=== PATIENT | male | born 1965 | race American Indian/Alaskan Native ===

== ENCOUNTER 2016-07-13 05:57 | Inpatient (IN) | payer OTHER ==
[2016-07-13] MEDS ORDERED: NACL 0.9% 1000 ML 1,000 ML IV ONE ×2 (06:24→07:05)
[2016-07-13 06:57] LABS: Basophils % (Auto) 0.6 % (0.0-1.8); Hematocrit 39.7 % (35.5-45.6); Mean Corpuscular HGB Conc 33 % (32-34); Mean Corpuscular Hemoglobin 33 pg (28-32); Mean Corpuscular Volume 101 fl (84-94); Red Blood Count 3.93 M/mm3 (3.65-5.03); Red Cell Distribution Width 17.1 % (13.2-15.2); White Blood Count 12.7 K/mm3 (4.5-11.0)
[2016-07-13 07:13] LABS: BUN/Creatinine Ratio 7.6; Calcium 8.7 mg/dL (8.4-10.2); Platelet Count 132 K/mm3 (140-440); Potassium 4.3 mmol/L (3.6-5.0)
--- NOTE | 2016-07-13 07:26 | Admit Criteria Form ---
Admission Criteria Documentation: HEMODYNAMIC INSTABILITY Clinical Indications for Inpatient Care (Place 'X' for any and all applicable criteria): Ongoing inpatient care may be indicated for hemodynamic instability as indicated by ANY ONE of the following (1)(2)(3)(4)(10): [X ]I) Marked hemodynamic change from baseline (eg, SBP 20 mm Hg below patient's usual pressure) [X ]II) New SBP less than 90 mm Hg or mean arterial pressure less than 70 mm Hg [B](15) [ ]IIII) Symptomatic heart rate greater than 100 or less than 60 beats per minute unresponsive to treatment (eg, analgesia, fluids) [ ]IV) Inadequate perfusion as indicated by ANY ONE of the following: [ ]a) Lactic acidosis, with lactic acid greater than 18 mg/dL (2 mmol/ L) or base excess less than -5 mEq/L [ ]b) New abnormal capillary refill (longer than 3 seconds) [ ]c) New altered mental status [ ]d) Reduced urine output [ ]V) Orthostatic vital sign changes [B] that are symptomatic and unresponsive to treatment (eg, fluids) [ ]) IV inotropic or vasopressor medication required(26) Extended stay beyond goal length of stay for primary condition may be needed until ALL of the following are present(1)(2)(3): [ ]a) Heart rate > 60 and < 100 beats per minute or patient is clinically stable at current rate (eg, baseline) [ ]b) SBP >100 mm Hg and <160 mm Hg or patient is clinically stable at current pressure (eg, baseline) [ ]c) DBP greater than 50 mm Hg and less than 100 mm Hg or patient is clinically stable at current pressure (eg, baseline) [ ]d) Urine output greater than 0.5 mL/kg per hour [ ]e) Room air oxygen saturation 90% or greater or at baseline [ ]f) Orthostatic vital sign changes absent, asymptomatic, at baseline, or manageable at lower level of care [ ]g) Medical comorbidities manageable at lower level of care The original [employer] [facility] content created by [employer] has been revised. The portions of the content which have been revised are identified through the use of italic text or in bold, and [facility] [employer] has neither reviewed nor approved the modified material. All other unmodified content is copyright [facility]. Please see references footnoted in the original [facility] edition 2016 Admission Criteria Met: Yes
[2016-07-13 07:41] LABS: INR 1.08 (0.87-1.13); Partial Thromboplastin Time 35.5 Sec. (24.2-36.6)
[2016-07-13 07:49] LABS: Alanine Aminotransferase 27 units/L (7-56); Albumin 3.8 g/dL (3.9-5); Albumin/Globulin Ratio 1.3 %; Alkaline Phosphatase 31 units/L (35-129); Bilirubin,Total 0.3 mg/dL (0.1-1.2); Magnesium 1.1 mg/dL (1.7-2.3); Total Protein 6.8 g/dL (6.3-8.2)
--- NOTE | 2016-07-13 07:53 | XRay Report ---
AP CHEST: HISTORY: Syncope AP view of the chest demonstrates a normal mediastinal and cardiac contour with clear lungs and normal bony and soft tissue structures. IMPRESSION: Unremarkable AP chest.
[2016-07-13 07:58] LABS: Bilirubin,Direct < 0.2 mg/dL (0-0.2); Bilirubin,Indirect 0.1 mg/dL
[2016-07-13 08:00] LABS: Cholesterol 131 mg/dL (50-199); HDL Cholesterol 49 mg/dL (40-59); LDL Cholesterol,Direct 53 mg/dL (50-130); Triglycerides 146 mg/dL (2-149)
[2016-07-13 08:02] LABS: Creatine Kinase MB 1.4 ng/mL (0.0-4.0)
[2016-07-13 08:04] LABS: Bacteria,Urine 1+ /HPF (Negative); Bilirubin,Urine NEG (Negative); Blood,Urine NEG (Negative); Ketones,Urine TR mg/dL (Negative); Leukocyte Esterase,Urine NEG (Negative); Mucus,Urine FEW /HPF; Nitrite,Urine NEG (Negative); Urobilinogen,Urine < 2.0 mg/dL (<2.0)
[2016-07-13] MEDS ORDERED: ROCEPHIN/NS 1 GM/50 ML 50 ML IV ONE (08:12)
[2016-07-13] MEDS ORDERED: MILK OF MAGNESIA PO PRN (10:30)
[2016-07-13] MEDS ORDERED: TYLENOL PO PRN (10:30)
[2016-07-13] MEDS ORDERED: DULCOLAX PR PRN (10:30)
[2016-07-13] MEDS ORDERED: ZOFRAN IV PRN (10:30)
--- NOTE | 2016-07-13 10:30 | Event Note ---
Date: 07/13/16 Patient signed AMA
[2016-07-13] MEDS ORDERED: SODIUM CHLORIDE FLUSH SYRINGE 10 ML IV PRN (10:35)
[2016-07-13 10:52] VITALS: BP 84/54
[2016-07-13] MEDS ORDERED: D5NS 1,000 ML IV SCH (11:00)
[2016-07-13 11:43] LABS: Creatine Kinase MB 1.9 ng/mL (0.0-4.0)
--- NOTE | 2016-07-13 15:29 | Emergency Department Report ---
ED General Adult HPI - General Chief complaint: Syncope Stated complaint: SYNCOPE Time Seen by Provider: 07/13/16 07:02 Source: patient Mode of arrival: Ambulatory Limitations: No Limitations - History of Present Illness Initial comments: The patient stated that he has been feeling weak for the past few days. This a.m. he had a syncopal episode which was brief and not associated with any prolonged loss of consciousness. He presented to this facility with a blood pressure of 78/50. He denies fever or chills. He denies any respiratory difficulty. He denies headache chest pain abdominal pain or back pain. The patient is a generally very poor historian. He usually gets his medical care at [place]. He states he's never passed out before. He states he has a history of kidney problems but has never been told that he might need dialysis. Does not report any cardiovascular history other than congestive heart failure. He does not know what medications that he is taking but believes he is taking a "heart pill". -: Gradual, days(s) Severity scale (0 -10): 0 Associated Symptoms: denies other symptoms (except above indicated) Treatments Prior to Arrival: none - Related Data Allergies Allergy/AdvReac Type Severity Reaction Status Date / Time No Known Allergies Allergy Verified 07/13/16 07:03 ED Review of Systems ROS: Stated complaint: SYNCOPE Other details as noted in HPI Constitutional: denies: chills, fever Eyes: denies: eye pain, eye discharge, vision change ENT: denies: ear pain, throat pain Respiratory: denies: cough, shortness of breath, wheezing Cardiovascular: syncope. denies: chest pain, palpitations Endocrine: no symptoms reported Gastrointestinal: denies: abdominal pain, nausea, diarrhea Genitourinary: denies: urgency, dysuria Musculoskeletal: denies: back pain, joint swelling, arthralgia Skin: denies: rash, lesions Neurological: denies: headache, weakness, paresthesias Psychiatric: denies: anxiety, depression Hematological/Lymphatic: denies: easy bleeding, easy bruising ED Past Medical Hx - Past Medical History Hx Hypertension: Yes Hx Congestive Heart Failure: Yes Hx Renal Disease: Yes - Surgical History Past Surgical History?: No - Social History Smoking Status: Current Every Day Smoker Substance Use Type: Alcohol ED Physical Exam - General Limitations: No Limitations General appearance: alert, in no apparent distress - Head Head exam: Present: atraumatic, normocephalic - Eye Eye exam: Present: normal appearance, PERRL, EOMI. Absent: scleral icterus - ENT ENT exam: Present: mucous membranes moist - Neck Neck exam: Present: normal inspection - Respiratory Respiratory exam: Present: normal lung sounds bilaterally. Absent: respiratory distress - Cardiovascular Cardiovascular Exam: Present: regular rate, normal rhythm. Absent: systolic murmur, diastolic murmur, rubs, gallop - GI/Abdominal GI/Abdominal exam: Present: soft, normal bowel sounds. Absent: distended, tenderness, guarding, rebound, rigid, organomegaly, mass, bruit, pulsatile mass , hernia - Rectal Rectal exam: Present: deferred - Extremities Exam Extremities exam: Present: normal inspection - Back Exam Back exam: Present: normal inspection - Neurological Exam Neurological exam: Present: alert, oriented X3, CN II-XII intact. Absent: motor sensory deficit - Psychiatric Psychiatric exam: Present: normal affect, normal mood - Skin Skin exam: Present: warm, dry, intact, normal color. Absent: rash ED Course Vital Signs 07/13/16 07/13/16 07/13/16 06:01 06:17 06:18 Temperature 97.8 F 97.8 F Pulse Rate 95 H 90 Respiratory 18 18 18 Rate Blood Pressure 78/50 Blood Pressure 78/50 78/50 [Right] O2 Sat by Pulse 97 97 96 Oximetry 07/13/16 07/13/16 07/13/16 07:06 07:14 07:16 Temperature Pulse Rate 96 H 94 H Respiratory 18 20 13 Rate Blood Pressure Blood Pressure 87/60 [Right] O2 Sat by Pulse 96 95 Oximetry 07/13/16 07/13/16 07/13/16 08:00 09:00 10:00 Temperature Pulse Rate 92 H 90 98 H Respiratory 15 16 14 Rate Blood Pressure 77/53 88/57 84/54 Blood Pressure [Right] O2 Sat by Pulse 97 96 Oximetry 07/13/16 10:52 Temperature 98.5 F Pulse Rate Respiratory Rate Blood Pressure Blood Pressure [Right] O2 Sat by Pulse Oximetry - Reevaluation(s) Reevaluation #1: Also of IV fluid was ordered. The case was presented to the hospitalist Dr. Sue. He was admitted and agreed when we spoke. However, I was informed later that the patient signed out AMA because he wanted to "go to [place]". 07/13/16 15:33 07/13/16 15:34 ED Medical Decision Making - Lab Data Result diagrams: 07/13/16 06:42 07/13/16 06:42 Laboratory Results - last 24 hr 07/13/16 07/13/16 07/13/16 06:42 06:42 06:42 WBC 12.7 H RBC 3.93 Hgb 13.0 Hct 39.7 MCV 101 H MCH 33 H MCHC 33 RDW 17.1 H Plt Count 132 L Lymph % (Auto) 14.8 [place] % (Auto) 9.0 H Eos % (Auto) 0.0 Baso % (Auto) 0.6 Lymph # 1.9 [place] # 1.1 H Eos # 0.0 Baso # 0.1 Seg Neutrophils % 75.6 H Seg Neutrophils # 9.6 H PT INR APTT Sodium 136 L Potassium 4.3 Chloride 98.0 Carbon Dioxide 17 L Anion Gap 25 BUN 38 H Creatinine 5.0 H Estimated GFR 15 BUN/Creatinine Ratio 7.60 Glucose 147 H Lactic Acid Calcium 8.7 Magnesium Total Bilirubin Direct Bilirubin Indirect Bilirubin AST ALT Alkaline Phosphatase Total Creatine Kinase 918 H CK-MB (CK-2) 1.4 CK-MB (CK-2) Rel Index 0.1 Troponin T NT-Pro-B Natriuret Pep Total Protein Albumin Albumin/Globulin Ratio Triglycerides Cholesterol LDL Cholesterol Direct HDL Cholesterol Cholesterol/HDL Ratio Urine Color Urine Turbidity Urine pH Ur Specific [place] Urine Protein Urine Glucose (UA) Urine Ketones Urine Blood Urine Nitrite Urine Bilirubin Urine Urobilinogen Ur Leukocyte Esterase Urine WBC (Auto) Urine RBC (Auto) U Epithel Cells (Auto) Urine Bacteria (Auto) Urine Mucus 07/13/16 07/13/16 07/13/16 06:42 07:04 07:21 WBC RBC Hgb Hct MCV MCH MCHC RDW Plt Count Lymph % (Auto) [place] % (Auto) Eos % (Auto) Baso % (Auto) Lymph # [place] # Eos # Baso # Seg Neutrophils % Seg Neutrophils # PT 13.9 INR 1.08 APTT 35.5 Sodium Potassium Chloride Carbon Dioxide Anion Gap BUN Creatinine Estimated GFR BUN/Creatinine Ratio Glucose Lactic Acid 1.7 Calcium Magnesium 1.1 L Total Bilirubin 0.3 Direct Bilirubin < 0.2 Indirect Bilirubin 0.1 AST 85 H ALT 27 Alkaline Phosphatase 31 L Total Creatine Kinase CK-MB (CK-2) CK-MB (CK-2) Rel Index Troponin T 0.043 H NT-Pro-B Natriuret Pep 4214 H Total Protein 6.8 Albumin 3.8 L Albumin/Globulin Ratio 1.3 Triglycerides 146 Cholesterol 131 LDL Cholesterol Direct 53 HDL Cholesterol 49 Cholesterol/HDL Ratio 2.67 Urine Color Urine Turbidity Urine pH Ur Specific [place] Urine Protein Urine Glucose (UA) Urine Ketones Urine Blood Urine Nitrite Urine Bilirubin Urine Urobilinogen Ur Leukocyte Esterase Urine WBC (Auto) Urine RBC (Auto) U Epithel Cells (Auto) Urine Bacteria (Auto) Urine Mucus 07/13/16 07/13/16 07:50 10:42 WBC RBC Hgb Hct MCV MCH MCHC RDW Plt Count Lymph % (Auto) [place] % (Auto) Eos % (Auto) Baso % (Auto) Lymph # [place] # Eos # Baso # Seg Neutrophils % Seg Neutrophils # PT INR APTT Sodium Potassium Chloride Carbon Dioxide Anion Gap BUN Creatinine Estimated GFR BUN/Creatinine Ratio Glucose Lactic Acid Calcium Magnesium Total Bilirubin Direct Bilirubin Indirect Bilirubin AST ALT Alkaline Phosphatase Total Creatine Kinase 1027 H CK-MB (CK-2) 1.9 CK-MB (CK-2) Rel Index 0.1 Troponin T 0.036 H NT-Pro-B Natriuret Pep Total Protein Albumin Albumin/Globulin Ratio Triglycerides Cholesterol LDL Cholesterol Direct HDL Cholesterol Cholesterol/HDL Ratio Urine Color [place] Urine Turbidity Cloudy Urine pH 5.0 Ur Specific [place] 1.023 Urine Protein 100 mg/dl Urine Glucose (UA) Neg Urine Ketones Tr Urine Blood Neg Urine Nitrite Neg Urine Bilirubin Neg Urine Urobilinogen < 2.0 Ur Leukocyte Esterase Neg Urine WBC (Auto) 15.0 H Urine RBC (Auto) 6.0 U Epithel Cells (Auto) 2.0 Urine Bacteria (Auto) 1+ Urine Mucus Few - EKG Data -: EKG Interpreted by Me EKG shows normal: sinus rhythm, axis, intervals - EKG Data Interpretation: other (lateral ST depressions, LVH by voltage and other criteria. Right atrial enlargement. Left atrial enlargement.) - Radiology Data interpreted by me: X-ray shows no acute process Critical Care Time: Yes Critical care time in (mins) excluding proc time.: 35 Critical care attestation.: If time is entered above; I have spent that time in minutes in the direct care of this critically ill patient, excluding procedure time. ED Disposition Clinical Impression: Cardiomyopathy, Chronic renal failure, stage 4 (severe) Hypotension Qualifiers: Hypotension type: unspecified hypotension type Qualified Code(s): I95.9 - Hypotension, unspecified Rhabdomyolysis Qualifiers: Rhabdomyolysis type: non-traumatic Qualified Code(s): M62.82 - Rhabdomyolysis Disposition: LEFT AGAINST MEDICAL ADVICE Is pt being admited?: Yes Does the pt Need Aspirin: Yes (patient left AMA) Condition: Stable
== END 2016-07-13 11:39 | disposition left against medical advice (07) | DRG 315 ==
LOC: ED 05:57 → 4A 10:30
PROVIDERS: ADMIT Internal Medicine; ATTEND Internal Medicine
DX: I95.9 Hypotension, unspecified (principal); N18.4 Chronic kidney disease, stage 4 (severe); M62.82 Rhabdomyolysis; I42.9 Cardiomyopathy, unspecified; I12.9 Hypertensive chronic kidney disease with stage 1 through stage 4 chronic kidney disease, or unspecified chronic kidney disease; B96.89 Other specified bacterial agents as the cause of diseases classified elsewhere
CPT/HCPCS: 36415; 71010; 80048; 80061; 80074; 81001; 82140; 82550; 82553; 83735; 83880; 84484; 85025; 85610; 85730; 87040; 87076; 87086; 87186; 93005; 93010; 96361; 96365; 99291; J0696; J7030; J7042